=== PATIENT | female | born 2000 | race Hispanic/Latino ===

== ENCOUNTER 2023-10-22 10:07 | Inpatient (IN) | payer OTHER ==
[2023-10-22 10:42] VITALS: BMI 35.7
[2023-10-22] MEDS ORDERED: Diphenoxylate HCl/Atropine Tablet PO PRN (10:55)
[2023-10-22] MEDS ORDERED: Ondansetron PF 4 MG/2 ML Vial IVP PRN ×2 (10:55→21:00)
[2023-10-22] MEDS ORDERED: Carboprost 250 MCG/ML AMP IM PRN (10:55)
[2023-10-22] MEDS ORDERED: Acetaminophen 500 MG TAB PO PRN (10:55)
[2023-10-22] MEDS ORDERED: Promethazine HCl 25 MG/ML VIAL IM PRN (10:55)
[2023-10-22] MEDS ORDERED: hydrALAZINE 20 MG/ML VIAL SLOW IVP PRN ×2 (10:55→21:00)
[2023-10-22] MEDS ORDERED: Tranexamic Acid 1,000 MG/10 ML VIAL IVP PRN (10:55)
[2023-10-22] MEDS ORDERED: Lactated Ringer's 1,000 ML IV SCH (11:00)
[2023-10-22 11:49] LABS: Hematocrit 35.2 % (34.9-44.5); Hemoglobin 12.2 g/dL (12.0-15.5); Mean Corpuscular HGB CONC 34.7 g/dL (32.0-36.0); Mean Corpuscular Hemoglobin 30.8 pg (27.0-33.0); Mean Corpuscular Volume 88.9 fL (81.6-98.3); Platelet Count 201 10x3/uL (150-450); RBC Distribution Width 13.6 % (11.5-14.5); Red Blood Cell (RBC) Count 3.96 10x6/uL (3.90-5.03); White Blood Cell (WBC) Count 9.1 10x3/uL (3.5-10.5)
[2023-10-22 12:15] LABS: HBsAg Index 0.17 S/CO (0-0.99); Hep B Surf Ag - L&D Non-Reactive S/CO (NonReactive)
[2023-10-22 12:16] LABS: Syphilis Antibody Nonreactive (Nonreactive); Syphilis Antibody Index 0.04 S/CO (<1.00 Non-Reactive)
[2023-10-22 13:56] LABS: HIV (1/2) Antibody/Antigen Non-Reactive (NonReactive)
[2023-10-22] MEDS: Lidocaine 1% (PF) 30 ML VIAL ONE (20:00)
[2023-10-22] MEDS: fentaNYL 50 mcg/mL 1 mL Vial ONE (20:28)
[2023-10-22] MEDS: Oxytocin 30 units/NS 500 ML 500 ML IV SCH (20:32)
[2023-10-22] MEDS ORDERED: Boostrix 0.5 ML (Tdap) VIAL (>/=7 yrs of age) IM ONE (21:00)
[2023-10-22] MEDS ORDERED: Bisacodyl 10 MG SUPP PR PRN (21:00)
[2023-10-22] MEDS ORDERED: Lanolin Ointment 7 GM TUBE TOP PRN (21:00)
[2023-10-22] MEDS ORDERED: Preparation H Ointment 28 GM TUBE PR PRN (21:00)
[2023-10-22] MEDS: Ibuprofen 800 MG TAB PO SCH (21:13)
[2023-10-22] MEDS: Misoprostol 200 MCG TAB PR PRN (21:37)
[2023-10-22] MEDS: Methylergonovine 0.2 MG/ML VIAL IM PRN (21:53)
[2023-10-23] MEDS: Acetaminophen 500 MG TAB PO PRN (01:25)
[2023-10-23 05:46] LABS: Hemoglobin 11.5 g/dL (12.0-15.5); Mean Corpuscular HGB CONC 33.8 g/dL (32.0-36.0); Mean Corpuscular Hemoglobin 30.3 pg (27.0-33.0); Mean Corpuscular Volume 89.5 fL (81.6-98.3); Platelet Count 169 10x3/uL (150-450); RBC Distribution Width 13.6 % (11.5-14.5)
[2023-10-23 05:47] LABS: MDiff Complete? YES
[2023-10-23 05:52] LABS: Band 5 % (5-11); Lymphocytes 15 % (21-51); Monocytes 2 % (0-10); Neutrophil 77 % (42-75); Reactive Lymphocytes 1 % (0-10)
[2023-10-23 05:55] LABS: Platelet Adequacy Comment Appears Adequate; RBC Morph Comment Within Normal Limits
[2023-10-23 05:56] LABS: White Blood Cell (WBC) Count 13.8 10x3/uL (3.5-10.5)
[2023-10-23] MEDS: Docusate 100 MG CAP PO SCH (07:33)
[2023-10-23] MEDS: Ferrous Sulfate 325 MG TAB PO SCH (07:34)
[2023-10-23] MEDS: Prenatal Vitamin 1 TAB PO SCH (08:36)
[2023-10-23] MEDS: Benzocaine-Menthol 82.5 ML CAN TOP PRN (08:36)
[2023-10-23] MEDS: Milk Of Magnesia 30 ML UDCUP PO PRN (08:36)
[2023-10-24 04:17] VITALS: TEMP 97.8
[2023-10-24 08:00] VITALS: BP 116/60
== END 2023-10-24 12:50 | disposition home or self-care (01) | DRG 768 ==
LOC: CSHLD/OP 10:07 → CSHLD 10:41 → CSHPP 22:47
PROVIDERS: ADMIT Obstetrics & Gynecology; ATTEND Obstetrics & Gynecology
PROC: 0DQR0ZZ Repair Anal Sphincter, Open Approach (ICD-10-PCS; principal; 2023-10-22)
PROC: 10E0XZZ Delivery of Products of Conception, External Approach (ICD-10-PCS; 2023-10-22)
DX: O48.0 Post-term pregnancy (principal); Z37.0 Single live birth; O70.20 Third degree perineal laceration during delivery, unspecified; Z79.899 Other long term (current) drug therapy; Z3A.40 40 weeks gestation of pregnancy; O69.81X0 Labor and delivery complicated by cord around neck, without compression, not applicable or unspecified
CPT/HCPCS: 36415; 51701; 85025; 85027; 86780; 86850; 86900; 86901; 87340; 87389; 99285; J2001; J2210; J2590; J3010